=== PATIENT | female | born 1965 | race Caucasian/White ===

== ENCOUNTER 2018-08-29 11:18 | Emergency (ER) | payer OTHER ==
[~2018-08-29] VITALS: Ht 162.6 cm; Wt 50.5 kg
[2018-08-29] MEDS ORDERED: LORazepam 2 MG/ML, 1ML IVPush ONE (12:00)
[2018-08-29] MEDS ORDERED: LORazepam 2 MG/ML, 1ML ONE (12:24)
[2018-08-29 12:27] VITALS: BP 128/83
[2018-08-29] MEDS ORDERED: OMNIPAQUE 350 MG/ML, 100ML BOTTLE ONE (12:44)
== END 2018-08-29 16:36 | disposition home or self-care (01) ==
LOC: ED 13:03
DX: F43.0 Acute stress reaction (principal); F41.9 Anxiety disorder, unspecified; R53.1 Weakness; G43.909 Migraine, unspecified, not intractable, without status migrainosus
CPT/HCPCS: 36415; 70450; 70496; 70498; 72125; 80047; 93005; 99291; Q9967